=== PATIENT | female | born 1970 | race Caucasian/White ===

== ENCOUNTER → 2019-05-26 | Outpatient (REF) ==
--- NOTE | 2019-05-26 12:53 | REP ---
REASON FOR EXAM: Degenerative disc disease. COMPARISON: None. Three views were obtained. There is posterior disc space narrowing at every level which is mild. Vertebral body height and alignment is within normal limits. The pedicles are intact bilaterally. Minimal anterior lipping is seen at every level. IMPRESSION: Mild chronic changes. Electronically Signed by Ruddy Mitchell DO 05/26/2019 02:38 P
--- NOTE | 2019-05-26 12:57 | REP ---
RIGHT WRIST, FOUR VIEWS: Four views of the right wrist performed. There is no acute fracture, dislocation, or intrinsic bone disease. Joint spaces appear unremarkable. IMPRESSION: Negative right wrist series. Electronically Signed by Mark Jaffe MD 05/27/2019 04:10 P
--- NOTE | 2019-05-26 15:30 | REP ---
Right forearm: Two views. History: Degenerative disease. Findings: AP and lateral views of the right forearm demonstrate overall normal mineralization. Bones, joints, and soft tissues are radiographically unremarkable. Impression: Negative right forearm. Electronically Signed by Albino Ocampo MD 05/26/2019 03:34 P
== END ==
LOC: M SMT 10:50
PROVIDERS: ATTEND Internal Medicine
DX: Z02.71 Encounter for disability determination (principal)

== ENCOUNTER → 2019-10-01 | Outpatient (CLI) | payer OTHER | LOC: M WHC 14:24 | PROVIDERS: ATTEND Nurse Practitioner Family | DX: Z12.31 Encounter for screening mammogram for malignant neoplasm of breast (principal) ==

== ENCOUNTER → 2019-10-07 | Outpatient (REF) | payer OTHER ==
[2019-10-07 18:49] LABS: C REACTIVE PROTEIN QUANTITATIV < 0.30 MG/DL (0.00-0.30); RHEUMATOID FACTOR QUANT < 10.0 IU/ML (<15.0)
== END ==
LOC: M SFHCRHEU 11:50
PROVIDERS: ATTEND Internal Medicine
DX: M25.50 Pain in unspecified joint (principal)

== ENCOUNTER → 2019-10-07 | Outpatient (CLI) | payer OTHER ==
--- NOTE | 2019-10-07 12:54 | REP ---
Clinical: Back pain and sacroiliac pain. Technique: AP, lateral, bilateral oblique and coned-down views of the lumbosacral spine. Comparison: 05/26/2019. Findings: Alignment and lordosis maintained. Endplate sclerosis and minimal disc space narrowing at L5-S1. Remainder examination appears age-appropriate. No acute fracture / compression injury or subluxation. No spondylolysis or spondylolisthesis. Impression: Minimal degenerative spondylosis at L5-S1. Electronically Signed by Ceasar Kebede MD 10/07/2019 12:46 P
--- NOTE | 2019-10-07 12:55 | REP ---
Clinical: Back and sacroiliac pain. Technique: AP, angled, and oblique views of the bilateral sacroiliac joints. Findings: The bilateral sacroiliac joints are symmetric and essentially age-appropriate. No periarticular sclerosis or erosive changes are appreciated. No obvious fusion. Impression: Age-appropriate bilateral sacroiliac joints. Electronically Signed by Ceasar Kebede MD 10/07/2019 12:47 P
== END ==
LOC: M WUC 12:21
PROVIDERS: ATTEND Internal Medicine
DX: M53.3 Sacrococcygeal disorders, not elsewhere classified (principal)
CPT/HCPCS: 36415; 72110; 72202; 81374; 85652; 86140; 86200; 86431; G0463

== ENCOUNTER 2020-08-16 09:50 | Day surgery (SDC) | payer OTHER ==
[~2020-08-16] VITALS: Ht 160 cm; Wt 57.6 kg
[~2020-08-16 09:50] MED LIST: CVS1CAP2 PO; CYMB60CA3 PO; LIDOCAINE 2% 100MG/5ML SDV (FOR ANES.) As Ordered ONE; MAGN400C PO; MIDAZOLAM INJ 2MG/2ML VIAL (J2250 PER 1MG) As Ordered ONE; ONDANSETRON 4MG/2ML VIAL As Ordered ONE; PREG25CA PO; RA B1TAB2 PO; SYNT75TA PO; VITA100T39 PO; dexameTHASONE 4 MG/ML 1ML VIAL (J1100 PER 1MG) As Ordered ONE; fentaNYL 100 MCG/2 ML INJECTION (J3010) As Ordered ONE; propofoL 200 MG/20 ML VIAL As Ordered ONE
[2020-08-16 10:36] LABS: URINE PREG TEST NEGATIVE (NEGATIVE)
[2020-08-16 10:39] LABS: HEMATOCRIT 38.4 % (36.0-47.0); HEMOGLOBIN 12.3 g/dl (12.0-15.5)
[2020-08-16 10:40] LABS: APPEARANCE, URINE HAZY (CLEAR); BACTERIA, URINE AUTO NEGATIVE (NEGATIVE); BILIRUBIN, URINE AUTO NEGATIVE (NEGATIVE); BLOOD, URINE BLOOD 2+ (NEGATIVE); COLOR, URINE YELLOW (YELLOW); GLUCOSE, URINE (UA) AUTO NEGATIVE (NEGATIVE); KETONE, URINE AUTO NEGATIVE (NEGATIVE); LEUKOCYTE ESTERASE, URINE AUTO NEGATIVE (NEGATIVE); MUCUS, URINE SMALL (NEGATIVE); NITRITE, URINE AUTO NEGATIVE (NEGATIVE); PROTEIN, URINE AUTO NEGATIVE (NEGATIVE); RBC, URINE AUTO 4 /HPF (0-3); SPECIFIC GRAVITY URINE AUTO 1.026 (1.002-1.035); SQUAMOUS EPITHELIAL CELL UR AU 3 /HPF (0-6); UROBILINOGEN, URINE AUTO 0.2 mg/dL (0.0-2.0); WBC, URINE AUTO 2 /HPF (0-3)
[2020-08-16] MEDS ORDERED: ePHEDrine SULFATE 25 MG/5 ML(5MG/ML) SYRINGE As Ordered ONE (10:57)
[2020-08-16] MEDS ORDERED: GLYCOPYRROLATE INJ 0.2 MG/ML 2 ML VIAL As Ordered ONE (10:57)
[2020-08-16] MEDS: CelecoXIB (CeleBREX) 100 MG CAP PO ONE (11:00)
[2020-08-16] MEDS: LR 1,000 ML IV ONE (11:01)
[2020-08-16] MEDS: ACETAMINOPHEN TAB 650MG DOSE (2X325MG) PO ONE (11:01)
[2020-08-16] MEDS ORDERED: KETOROLAC 60MG 2ML VIAL As Ordered ONE (11:11)
[2020-08-16] MEDS ORDERED: SCOPOLAMINE 1MG TRANSDERMAL PATCH As Ordered ONE (11:43)
[2020-08-16] MEDS ORDERED: SCOPOLAMINE 1MG TRANSDERMAL PATCH TOP ONE (12:00)
[2020-08-16] MEDS ORDERED: METOCLOPRAMIDE INJ 10MG/2ML VIAL (J2765 PER 1) As Ordered ONE (12:00)
[2020-08-16] MEDS: LR 1,000 ML IV SCH (12:34)
--- NOTE | 2020-08-16 12:38 | ROOPDOC ---
[facility] Report Of Operation Report of Operation DATE OF PROCEDURE: 08/16/20 PREPROCEDURE DIAGNOSES: Abnormal Uterine Bleeding POSTPROCEDURE DIAGNOSES: Abnormal Uterine Bleeding PROCEDURE: Hysteroscopy and Dilation and Curettage. SURGEON: Raul Boswell MD CROSSING FLAGMAN: Yinka Lew MD ANESTHESIA: General . ESTIMATED BLOOD LOSS: Approximately less than 20 mL. COMPLICATIONS: None. REMARKS: none PROCEDURE NOTE: normal anatomy of external female genitalia. fluffy endometrium, normal bilateral ostia DESCRIPTION OF PROCEDURE: The patient was taken to the operating room where anesthesia was found to be adequate. She was then placed in the high lithotomy position with yello fin stirrups. An examination under anesthesia was performed with the findings as noted above. The patient was prepped and draped in the usual sterile fashion. An operative sterile speculum was placed into the vagina and the anterior lip of the cervix was grasped with a single-tooth tenaculum. The cervix was then sequentially dilated with Hanks dilators to a diameter sufficient enough to allow easy passage of the hysteroscope. The 5mm diagnostic hysteroscope was then inserted through the cervix into the uterus. The endometrial cavity was visualized with findings noted above. The hysteroscope was removed and a serrated curette was then inserted through the cervix into the uterus. Curettage was performed on the endometrial lining until a uterine cry was noted at 360 degrees around the uterus. The curette was removed with moderate return of tissue. The cervical os appeared hemostatic. The single-tooth tenaculum was removed from the anterior lip of the cervix. The tenaculum sites were also hemostatic. The operative sterile speculum was then removed from the vagina. vaginal sweep done at end of procedure without any retained sponge noted. tissue sent to pathology. The patient was returned to the supine position. She was awoken from anesthesia without difficulty and taken to the recovery room in stable condition. RAUL BOSWELL MD Aug 16, 2020 12:38
[2020-08-16] MEDS: ONDANSETRON 4MG/2ML VIAL IV PRN (12:55)
[2020-08-16] MEDS ORDERED: fentaNYL 100 MCG/2 ML INJECTION (J3010) IV PRN (13:00)
[2020-08-16] MEDS: oxyCODONE 5MG TAB PO PRN (13:15)
[2020-08-16 13:57] VITALS: BP 122/71
== END 2020-08-16 14:15 | disposition home or self-care (01) ==
LOC: M SDC 09:50
PROVIDERS: ATTEND Obstetrics & Gynecology
DX: N93.9 Abnormal uterine and vaginal bleeding, unspecified (principal); E03.9 Hypothyroidism, unspecified; F32.9 Major depressive disorder, single episode, unspecified; F43.10 Post-traumatic stress disorder, unspecified; M54.5 Low back pain; M79.7 Fibromyalgia; Z79.890 Hormone replacement therapy; Z87.891 Personal history of nicotine dependence; Z88.0 Allergy status to penicillin
CPT/HCPCS: 36415; 58558; 81001; 84703; 85014; 85018; 86850; 86900; 86901; 88305; 96374; J1100; J1885; J2250; J2405; J2765; J3010

== ENCOUNTER → 2020-10-11 | Outpatient (CLI) | payer OTHER ==
[~2020-10-11] MED LIST changes: -LIDOCAINE 2% 100MG/5ML SDV (FOR ANES.) As Ordered ONE; -MIDAZOLAM INJ 2MG/2ML VIAL (J2250 PER 1MG) As Ordered ONE; -ONDANSETRON 4MG/2ML VIAL As Ordered ONE; -dexameTHASONE 4 MG/ML 1ML VIAL (J1100 PER 1MG) As Ordered ONE; -fentaNYL 100 MCG/2 ML INJECTION (J3010) As Ordered ONE; -propofoL 200 MG/20 ML VIAL As Ordered ONE
--- NOTE | 2020-10-11 11:06 | REPMRS ---
Patient History The patient states she has not had a clinical breast exam in over a year. Patient is nulliparous. No known family history of cancer. Benign core biopsy of the left breast, 2016. Silicone gel implants in both breasts, 2014. Implants in both breasts, 2013. 2 benign core biopsies of the right breast, 2005. Digital Woman Screen Mammo: October 11, 2020 - Exam #: [id number] Bilateral CC and MLO view(s) were taken. Technologist: Libia Stark, Technologist Prior study comparison: October 01, 2019, bilateral digital woman screen mammo performed at [facility]. May 14, 2017, bilateral digital mammo screening bilat, performed at [facility] [place]. January 31, 2015, digital mammo diagnostic bilateral, performed at [facility]. FINDINGS: The breast tissue is heterogeneously dense. This may lower the sensitivity of mammography. The visualized implant margins are smooth. There is a needle biopsy marker clip in each breast. There are stable dispersed calcifications on the left. Breast parenchymal density pattern is essentially symmetric. No dominant mass, grouped microcalcification, or architectural distortion is evident on either side. 3-D tomosynthesis shows no additional findings. No significant changes when compared with prior studies. Assessment: BI-RADS/ACR category 2 mammogram. Benign Findings. Recommendation Routine screening mammogram of both breasts in 1 year (for women over age 40). This patient's [facility] Lifetime Breast Cancer RIsk is estimated at 10.9 %. This mammogram was interpreted with the aid of an FDA-approved computer-aided dectection system. Electronically Signed By: Phi Ocampo MD 10/11/20 1828
--- NOTE | 2020-10-11 11:39 | REP ---
INDICATION: DENSE BREASTS. Bilateral whole breast screening sonography. COMPARISON: Comparison is made with today's mammography.. TECHNIQUE: Bilateral screening whole breast ultrasound. FINDINGS: Silicone augmentation implant margins are smooth bilaterally. Heterogeneous fibroglandular background echotexture is seen throughout both breasts. In the right breast, 3 cysts are identified. At 2 o'clock there is a 1.1 cm cyst. At the 6 o'clock position in the right breast, there is a cyst measuring 0.7 cm in greatest diameter. In the 8 o'clock position in the right breast, there is a cyst measuring 0.5 cm in greatest diameter. No other significant abnormality is noted in the right breast. In the left breast there are a few somewhat dilated ducts in the superior retroareolar region. A to 2 o'clock position in the left breast there is a 0.4 cm cyst. No other significant finding is seen in the left breast. No suspicious sonographic abnormality is seen on either side. IMPRESSION: BI-RADS category 2 benign findings. This patient's estimated Tyrer-Cuzick lifetime risk assessment for breast cancer is 10.9%. <Electronically signed by Phi Ocampo > 10/11/20 3092
== END ==
LOC: M WHC 08:59
PROVIDERS: ATTEND Nurse Practitioner Family
DX: Z12.31 Encounter for screening mammogram for malignant neoplasm of breast (principal)

== ENCOUNTER → 2021-11-28 | Outpatient (CLI) | payer OTHER ==
[~2021-11-28] MED LIST changes: -CYMB60CA3 PO; +CYMB60CA4 PO
== END ==
LOC: M WHC 10:47
PROVIDERS: ATTEND Nurse Practitioner Family
DX: Z12.31 Encounter for screening mammogram for malignant neoplasm of breast (principal); R92.8 Other abnormal and inconclusive findings on diagnostic imaging of breast; Z98.82 Breast implant status; N60.01 Solitary cyst of right breast; N60.02 Solitary cyst of left breast

== ENCOUNTER → 2022-03-25 | Outpatient (CLI) | payer MEDICARE, OTHER ==
[~2022-03-25] MED LIST changes: +VITA-243 PO; +VITA100093 PO
== END ==
LOC: M LABSMTC 09:36
PROVIDERS: ATTEND Anesthesiology
DX: Z01.812 Encounter for preprocedural laboratory examination (principal); Z20.822 Contact with and (suspected) exposure to COVID-19

== ENCOUNTER 2022-03-28 11:19 | Day surgery (SDC) | payer MEDICARE, OTHER ==
[~2022-03-28] VITALS: Ht 160 cm; Wt 54.4 kg
[~2022-03-28 11:19] MED LIST changes: +NS 1,000 ML IV ONE
[2022-03-28] MEDS ORDERED: LIDOCAINE 2% 100MG/5ML SDV (FOR ANES.) As Ordered ONE (11:30)
[2022-03-28] MEDS ORDERED: propofoL 200 MG/20 ML VIAL As Ordered ONE (11:30)
[2022-03-28 13:11] VITALS: BP 99/77
== END 2022-03-28 13:00 | disposition home or self-care (01) ==
LOC: M OPP 11:19
PROVIDERS: ATTEND Surgery
DX: K92.1 Melena (principal); D12.5 Benign neoplasm of sigmoid colon; K64.2 Third degree hemorrhoids; E03.9 Hypothyroidism, unspecified; M79.7 Fibromyalgia; F32.A Depression, unspecified; G43.909 Migraine, unspecified, not intractable, without status migrainosus; F43.10 Post-traumatic stress disorder, unspecified; Z87.891 Personal history of nicotine dependence; Z88.0 Allergy status to penicillin; Z79.899 Other long term (current) drug therapy

== ENCOUNTER → 2022-06-27 | Outpatient (CLI) | payer OTHER ==
[~2022-06-27] MED LIST changes: -NS 1,000 ML IV ONE
== END ==
LOC: M WHC 07:44
PROVIDERS: ATTEND Nurse Practitioner Family
DX: R92.8 Other abnormal and inconclusive findings on diagnostic imaging of breast (principal); N63.23 Unspecified lump in the left breast, lower outer quadrant

== ENCOUNTER → 2022-12-24 | Outpatient (CLI) | payer OTHER | LOC: M WHC 11:22 | PROVIDERS: ATTEND Nurse Practitioner Family | DX: Z12.31 Encounter for screening mammogram for malignant neoplasm of breast (principal) ==

== ENCOUNTER → 2023-12-27 | Outpatient (CLI) | payer OTHER | LOC: M WHC 13:15 | PROVIDERS: ATTEND Internal Medicine | DX: Z12.31 Encounter for screening mammogram for malignant neoplasm of breast (principal) ==

== ENCOUNTER → 2025-01-07 | Outpatient (CLI) | payer OTHER ==
[~2025-01-07] MED LIST changes: -PREG25CA PO; +PREG25CA63 PO
== END ==
LOC: M WHC 14:06
PROVIDERS: ATTEND Family Medicine
DX: Z12.31 Encounter for screening mammogram for malignant neoplasm of breast (principal)